=== PATIENT | male | born 1950 | race Hispanic/Latino ===

== ENCOUNTER 2017-06-30 19:11 | Emergency (ER) | payer BC ==
[2017-06-30 20:37] LABS: BASO # 0.1 K/uL (0.0-0.2); BASO % 1.1 % (0.0-2.0); EOS # 0.1 K/uL (0.0-0.7); EOS % 1.2 % (0.0-4.0); HEMOGLOBIN 14.5 g/dL (12.0-18.0); LYMPH # 1.9 K/uL (1.0-4.3); LYMPH % 15.3 % (20.0-40.0); MEAN CELL VOLUME 97.1 fL (80.0-94.0); MEAN CORPUSCULAR HEMOGLOBIN 33.4 pg (27.0-31.0); MEAN CORPUSCULAR HGB CONC 34.4 g/dL (33.0-37.0); MEAN PLATELET VOLUME 7.9 fL (7.2-11.7); MONO # 0.8 K/uL (0.0-0.8); MONO % 6.7 % (0.0-10.0); NEUT # 9.3 K/uL (1.8-7.0); NEUT % 75.7 % (50.0-75.0); RBC 4.33 Mil/uL (4.40-5.90); RED CELL DISTRIBUTION WIDTH 13.5 % (11.5-14.5); WHITE BLOOD COUNT 12.3 K/uL (4.8-10.8)
[2017-06-30 20:50] LABS: ALB/GLOB RATIO 1.2 (1.0-2.1); ALBUMIN 4.1 g/dL (3.5-5.0); ALT/SGPT 27 U/L (21-72); AST/SGOT 30 U/L (17-59); BLOOD UREA NITROGEN 16 mg/dL (9-20); CALCIUM 8.5 mg/dl (8.6-10.4); GFR AFRICAN-AMERICAN > 60; GFR NON-AFRICAN AMERICAN > 60
--- NOTE | 2017-06-30 22:02 | CP.PCM.CON ---
History of Present Illness - History of Present Illness History of Present Illness: Podiatry Consult Note - Dr. Diaz 67 year old male patient unremarkable PMHx presents to ED complaining of a painful blister on the bottom of his left foot. Friend present at bedside. Patient states he walks a lot daily, and often times walks barefoot - which he believes caused the blister on the bottom of his foot to develop. Patient first noticed the blister a couple days ago, but then noticed his foot becoming red and swollen which prompted him to present to [facility] ED. Currently, patient endorses moderate pain with palpation of the blister. Denies nausea, malaise, fever, lethargy, chills, diarrhea, SOB, headache, dizziness. PMHx: unremarkable PSH: appendectomy FH: HTN (brother, father) SH: Daily ETOH use (1 pint of vodka/day), 1PPD x30 years, denies illicit drug use All: NKDA Review of Systems - Review of Systems All systems: reviewed and no additional remarkable complaints except (as per HPI ) Past Patient History - Past Social History Smoking Status: Heavy Smoker > 10 Cigarettes Daily - CARDIAC Hx Hypertension: Yes - PSYCHIATRIC Hx Substance Use: No - SURGICAL HISTORY Hx Surgeries: Yes Hx Appendectomy: Yes Other/Comment: sinus surgery. RT ear - ANESTHESIA Hx Anesthesia: Yes Meds Home Medications: Home Medication List Medication Instructions Recorded Confirmed Type Amoxicillin/Clavulanate [Augmentin 1 tab PO BID #20 tab 06/30/17 Rx 875 MG-125 MG] Allergies/Adverse Reactions: Allergies Allergy/AdvReac Type Severity Reaction Status Date / Time No Known Allergies Allergy Unverified 01/19/14 03:40 Physical Exam - Constitutional Appears: Well, Non-toxic, No Acute Distress - Extremities Exam Additional comments: VASC: DP and PT pulses palpable 2/4 b/l. CFT <3 seconds to digits x10. Temperature gradient warm to warm b/l. Mild increase in warmth noted to erythematous areas in left foot. Nonpitting edema noted to left forefoot. NEURO: Gross sensation intact bilaterally. DERM: Bullae noted sub 2nd met head left foot measuring approximately 3 x 2 cm - filled with cloudy, yellow drainage when expressed revealing a mixed granular/ epithelialized base. Erythema noted to left foot extending from midshaft of metatarsals into digits. ORTHO: Pain on palpation left foot bullae. - Neurological Exam Neurological exam: Alert, Oriented x3 - Psychiatric Exam Psychiatric exam: Normal Affect, Normal Mood Results - Vital Signs Recent Vital Signs: Last Vital Signs Temp 97.8 F 06/30/17 19:26 Pulse 96 H 06/30/17 19:26 Resp 18 06/30/17 19:26 BP 182/94 H 06/30/17 19:26 Pulse Ox 100 06/30/17 19:26 - Labs Result Diagrams: 06/30/17 20:31 06/30/17 20:31 Labs: Laboratory Results - last 24 hr 06/30/17 06/30/17 20:31 20:31 WBC 12.3 H RBC 4.33 L Hgb 14.5 Hct 42.0 MCV 97.1 H MCH 33.4 H MCHC 34.4 RDW 13.5 Plt Count 232 MPV 7.9 Neut % (Auto) 75.7 H Lymph % (Auto) 15.3 L [place] % (Auto) 6.7 Eos % (Auto) 1.2 Baso % (Auto) 1.1 Neut # (Auto) 9.3 H Lymph # (Auto) 1.9 [place] # (Auto) 0.8 Eos # (Auto) 0.1 Baso # (Auto) 0.1 ESR 5 Sodium 141 Potassium 3.7 Chloride 104 Carbon Dioxide 21 L Anion Gap 19 BUN 16 Creatinine 0.8 Est GFR ( Amer) > 60 Est GFR (Non-Af Amer) > 60 Random Glucose 83 Calcium 8.5 L Total Bilirubin 1.5 H AST 30 ALT 27 Alkaline Phosphatase 67 C-Reactive Protein 5.20 Total Protein 7.4 Albumin 4.1 Globulin 3.3 Albumin/Globulin Ratio 1.2 Assessment & Plan - Assessment and Plan (Free Text) Assessment: 67M with infected bullae left foot + cellulitis Plan: Patient seen and evaluated Discussed with attending, Dr. Diaz Afebrile, WBC 12.3 L foot XR: soft tissue swelling plantar forefoot with possible foreign body Bedside I&D using #15 blade, approximately 1cc of purulence able to be expressed ; unable to find possible foreign body -Wound Cx obtained by ED Recommend Augmentin 1tab PO x10 days Advised patient to follow up with Dr. Diaz in the podiatry clinic on Tuesday, Stable for dc per podiatry Thank you for the consult, please reconsult podiatry as needed
[2017-06-30] MEDS ORDERED: Lidocaine 2% Inj (20ml) INFIL ONE (22:21)
[2017-06-30] MEDS ORDERED: Lidocaine 2% Inj (20ml) ONE (22:25)
--- NOTE | 2017-06-30 23:04 | C.PDOC ---
Time Seen by Provider: 06/30/17 19:47 Chief Complaint (Nursing): Abnormal Skin Integrity History Per: Patient Onset/Duration Of Symptoms: Days (4) Current Symptoms Are (Timing): Worse Location Of Injury: Left: Foot Quality Of Symptoms: Painful, Swollen Severity: Moderate Additional History Per: Prior Records Past Medical History Reviewed: Historical Data, Nursing Documentation, Vital Signs Vital Signs: Last Vital Signs Temp 97.8 F 06/30/17 19:26 Pulse 96 H 06/30/17 19:26 Resp 18 06/30/17 19:26 BP 182/94 H 06/30/17 19:26 Pulse Ox 100 06/30/17 23:06 - Medical History PMH: HTN Surgical History: Appendectomy Family History: States: Unknown Family Hx - Social History Hx Tobacco Use: No Hx Alcohol Use: Yes Hx Substance Use: No - Immunization History Hx Tetanus Toxoid Vaccination: No Hx Influenza Vaccination: No Hx Pneumococcal Vaccination: No Review Of Systems Except As Marked, All Systems Reviewed And Found Negative. Constitutional: Negative for: Fever Cardiovascular: Negative for: Chest Pain Respiratory: Negative for: Shortness of Breath Gastrointestinal: Negative for: Vomiting, Abdominal Pain Musculoskeletal: Positive for: Foot Pain (left). Negative for: Leg Pain Neurological: Negative for: Weakness, Numbness Physical Exam - Physical Exam Appears: Non-toxic, No Acute Distress Skin: Warm, Dry Head: Atraumatic, Normacephalic Eye(s): bilateral: Normal Inspection, PERRL, EOMI Neck: Normal ROM, Supple Cardiovascular: Rhythm Regular Respiratory: Normal Breath Sounds, No Accessory Muscle Use Extremity: Normal ROM, Tenderness (Left forefoot. ), No Calf Tenderness, Capillary Refill (wnl), Swelling (mild swelling to left forefoot with mild erythema), Other (hemorrhagic blister on plantar aspect of left forefoot.) Pulses: Left Dorsalis Pedis: Normal Neurological/Psych: Oriented x3, Normal Motor, Normal Sensation ED Course And Treatment - Laboratory Results Result Diagrams: 06/30/17 20:31 06/30/17 20:31 Interpretation Of Abnormal: Mild leukocytosis. Normal ESR/CRP. O2 Sat by Pulse Oximetry: 100 Pulse Ox Interpretation: Normal - Other Rad Left foot x-rays X-Ray: Interpreted by Me, Viewed By Me Interpretation: No acute fx. Progress Note: Pt was evaluated and treated in the ED by Podiatry resident. Podiatry states pt can be discharged home on Augmentin and f/up in Podiatry clinic. Reassessment Condition: Improved - Incision & Drainage Of Abscess Prep Used: Betadine Procedure: Incised W/Scalpel Blade#: (Aspirated with 19G needle), Drained Pus ( Blood with small amount of pus), Cultures Obtained And Sent To Lab Progress - Interventions Interventions:: Observation - Medications Administered Intravenous: NSAID - Data Reviewed Data Reviewed: Lab, Diagnostic imaging, Old records - Patient Status Patient status: Partially improved - Continuity of Care Discussed patient case with:: Patient, ED Nurse Discussed pt. case with edi consultant/specialty: Podiatry - Patient Plan Patient Plan: Discharge, F/U with PCP, Continue present meds Disposition Counseled Patient/Family Regarding: Studies Performed, Diagnosis, Need For Followup, Rx Given - Disposition Referrals: Jacinda Diaz DPM [Staff Provider] - Disposition: HOME/ ROUTINE Disposition Time: 23:07 Condition: FAIR Additional Instructions: Follow up with Dr. Diaz in the Podiatry clinic on Tuesday. Return to the ER if you develop fever, worsening of symptoms or if you have any other concerns. Prescriptions: Amoxicillin/Clavulanate [Augmentin 875 MG-125 MG] 1 tab PO BID #20 tab Forms: [facility] ([place]an), General Discharge Instructions - Clinical Impression Clinical Impression: Left foot infection, Blood blister
[2017-06-30] MEDS ORDERED: Amoxicillin-Clav 875-125 mg Tab PO STA (23:06)
[2017-06-30] MEDS ORDERED: Amoxicillin-Clav 875-125 mg Tab PO ONE (23:22)
[2017-06-30 23:44] VITALS: BP 164/84; PULSE 84; RESP 16; TEMP 98; O2SAT 98
--- NOTE | 2017-07-01 10:54 | RAD ---
PROCEDURE: Left Foot Radiographs. HISTORY: Pain/swelling COMPARISON: None. FINDINGS: BONES: Normal. No fracture. JOINTS: Normal. SOFT TISSUES: Normal. OTHER FINDINGS: None. IMPRESSION: Normal left foot radiographs.
== END 2017-06-30 23:44 | disposition home or self-care (01) ==
LOC: C.ER 19:11
DX: L03.116 Cellulitis of left lower limb (principal); R23.8 Other skin changes
CPT/HCPCS: 10060; 73630; 80053; 85025; 85651; 86140; 87070; 87181; 96374; 99283; J1885

== ENCOUNTER 2017-07-27 12:28 | Inpatient (IN) | payer BC, MEDICARE ==
[2017-07-27] MEDS ORDERED: DiphenhydrAMINE 50 mg/ml Inj ONE (12:49)
[2017-07-27 12:59] VITALS: RESP 20
[2017-07-27] MEDS ORDERED: DiphenhydrAMINE 50 mg/ml Inj IVP STA (13:04)
[2017-07-27] MEDS ORDERED: Sodium Chloride 0.9% 1,000 ML IV ONE (13:05)
[2017-07-27 13:17] LABS: BASO # 0.1 K/uL (0.0-0.2); BASO % 0.5 % (0.0-2.0); EOS # 0.1 K/uL (0.0-0.7); EOS % 0.5 % (0.0-4.0); HEMOGLOBIN 15.4 g/dL (12.0-18.0); LYMPH # 2.1 K/uL (1.0-4.3); LYMPH % 17.7 % (20.0-40.0); MEAN CELL VOLUME 97.5 fL (80.0-94.0); MEAN CORPUSCULAR HEMOGLOBIN 33.2 pg (27.0-31.0); MEAN CORPUSCULAR HGB CONC 34.1 g/dL (33.0-37.0); MEAN PLATELET VOLUME 8.5 fL (7.2-11.7); MONO # 1.3 K/uL (0.0-0.8); MONO % 10.5 % (0.0-10.0); NEUT # 8.5 K/uL (1.8-7.0); NEUT % 70.8 % (50.0-75.0); RBC 4.63 Mil/uL (4.40-5.90); RED CELL DISTRIBUTION WIDTH 13.4 % (11.5-14.5)
[2017-07-27 13:25] LABS: INR 0.9; PROTHROMBIN TIME 10.3 SECONDS (9.7-12.2)
--- NOTE | 2017-07-27 13:31 | RAD ---
PROCEDURE: CHEST RADIOGRAPH, 1 VIEW HISTORY: SOB COMPARISON: None available. FINDINGS: LUNGS: Biapical pleural-parenchymal scarring. No focal consolidation. PLEURA: No pneumothorax or pleural fluid seen. CARDIOVASCULAR: Atherosclerotic aortic calcifications. Cardiomediastinal silhouette within normal limits. OSSEOUS STRUCTURES: Degenerative changes. VISUALIZED UPPER ABDOMEN: Normal. OTHER FINDINGS: None. IMPRESSION: No active disease.
[2017-07-27 13:38] LABS: ALB/GLOB RATIO 1.3 (1.0-2.1); ALBUMIN 3.9 g/dL (3.5-5.0); ALT/SGPT 23 U/L (21-72); AST/SGOT 27 U/L (17-59); BLOOD UREA NITROGEN 29 mg/dL (9-20); CALCIUM 8.9 mg/dl (8.6-10.4); GFR AFRICAN-AMERICAN 52; GFR NON-AFRICAN AMERICAN 43
[2017-07-27 13:41] LABS: CK-MB 0.73 ng/mL (0.0-3.38)
--- NOTE | 2017-07-27 14:11 | C.PDOC ---
History Of Present Illness Patient presents to ED c/o swelling of his lips since waking up this morning. Patient started taking Lisinopril for HTN last night. He denies itching, tongue swelling, sensation of throat closing up, SOB, wheezing, palpitations, rash, chest pain. Time Seen by Provider: 07/27/17 12:46 Chief Complaint (Nursing): Allergic Reaction History Per: Patient History/Exam Limitations: no limitations Onset/Duration Of Symptoms: Hrs Current Symptoms Are (Timing): Still Present Severity: Severe Past Medical History Reviewed: Historical Data, Nursing Documentation, Vital Signs Vital Signs: Last Vital Signs Temp 97.9 F 07/27/17 12:45 Pulse 80 07/27/17 15:05 Resp 20 07/27/17 15:05 BP 134/75 07/27/17 15:05 Pulse Ox 98 07/27/17 15:05 - Medical History PMH: HTN Surgical History: Appendectomy Family History: States: No Known Family Hx - Social History Hx Tobacco Use: No Hx Alcohol Use: Yes Hx Substance Use: No - Immunization History Hx Tetanus Toxoid Vaccination: No Hx Influenza Vaccination: No Hx Pneumococcal Vaccination: No Review Of Systems Constitutional: Negative for: Fever, Chills ENT: Positive for: Other (lip swelling ) Cardiovascular: Negative for: Chest Pain, Palpitations Respiratory: Negative for: Cough, Shortness of Breath Gastrointestinal: Negative for: Nausea, Vomiting, Abdominal Pain, Diarrhea Genitourinary: Negative for: Dysuria, Hematuria Skin: Negative for: Rash Physical Exam - Physical Exam Appears: Well, Non-toxic, No Acute Distress, Other (speaking in full sentences) Skin: Normal Color, Warm, Dry, No Rash Head: Atraumatic, Normacephalic Eye(s): bilateral: Normal Inspection Nose: Normal Oral Mucosa: Moist Tongue: Normal Appearing, No Swelling Lips: Swelling, Other (moderate swelling of lips) Throat: Normal, No Erythema, No Exudate, No Drooling Cardiovascular: Rhythm Regular Respiratory: Normal Breath Sounds, No Accessory Muscle Use, No Rales, No Rhonchi , No Wheezing Neurological/Psych: Oriented x3 ED Course And Treatment - Laboratory Results Result Diagrams: 07/27/17 13:14 07/27/17 13:14 O2 Sat by Pulse Oximetry: 99 Progress Note: Blood work, CXR, EKG ordered and reviewed. 3:20PM- Patient evaluated by ICU Dr. Dutton, does not think patient needs ICU at this time. Will admit to telemetry. Disposition - Disposition Forms: [employer] ([place])
--- NOTE | 2017-07-27 15:40 | CP.PCM.HP ---
Past Patient History - Past Social History Smoking Status: Heavy Smoker > 10 Cigarettes Daily - CARDIAC Hx Hypertension: Yes - PSYCHIATRIC Hx Substance Use: No - SURGICAL HISTORY Hx Appendectomy: Yes - ANESTHESIA Hx Anesthesia: Yes Hx Anesthesia Reactions: No Meds Allergies/Adverse Reactions: Allergies Allergy/AdvReac Type Severity Reaction Status Date / Time No Known Allergies Allergy Verified 07/27/17 12:41 Physical Exam - Constitutional Appears: Well - Head Exam Head Exam: ATRAUMATIC, NORMAL INSPECTION, NORMOCEPHALIC - Eye Exam Eye Exam: EOMI, Normal appearance, PERRL Pupil Exam: NORMAL ACCOMODATION, PERRL - ENT Exam ENT Exam: Mucous Membranes Moist, Normal Exam - Neck Exam Neck exam: Positive for: Normal Inspection - Respiratory Exam Respiratory Exam: Decreased Breath Sounds - Cardiovascular Exam Cardiovascular Exam: REGULAR RHYTHM, +S1, +S2 - GI/Abdominal Exam GI & Abdominal Exam: Diminished Bowel Sounds, Soft - Rectal Exam Rectal Exam: Deferred Results - Vital Signs Recent Vital Signs: Last Vital Signs Temp 97.9 F 07/27/17 12:45 Pulse 80 07/27/17 15:05 Resp 20 07/27/17 15:05 BP 134/75 07/27/17 15:05 Pulse Ox 99 07/27/17 15:25 - Labs Result Diagrams: 07/27/17 13:14 07/27/17 13:14 Labs: Laboratory Results - last 24 hr 07/27/17 07/27/17 07/27/17 13:14 13:14 13:14 WBC 12.0 H RBC 4.63 Hgb 15.4 Hct 45.2 MCV 97.5 H MCH 33.2 H MCHC 34.1 RDW 13.4 Plt Count 222 MPV 8.5 Neut % (Auto) 70.8 Lymph % (Auto) 17.7 L [place] % (Auto) 10.5 H Eos % (Auto) 0.5 Baso % (Auto) 0.5 Neut # (Auto) 8.5 H Lymph # (Auto) 2.1 [place] # (Auto) 1.3 H Eos # (Auto) 0.1 Baso # (Auto) 0.1 PT 10.3 INR 0.9 APTT 30 Sodium 143 Potassium 4.4 Chloride 104 Carbon Dioxide 29 Anion Gap 15 BUN 29 H Creatinine 1.6 H Est GFR ( Amer) 52 Est GFR (Non-Af Amer) 43 Random Glucose 125 H Calcium 8.9 Total Bilirubin 3.1 H AST 27 ALT 23 Alkaline Phosphatase 59 Total Creatine Kinase 66 CK-MB (Mass) 0.73 Troponin I < 0.0120 Total Protein 6.8 Albumin 3.9 Globulin 3.0 Albumin/Globulin Ratio 1.3
--- NOTE | 2017-07-27 16:00 | CP.PCM.CON ---
History of Present Illness - History of Present Illness History of Present Illness: Critical Care consult note for Dr. Dutton This is a 67 year old male with PMHx HTN who presented to the hospital for swelling of the lips. Patient states that he took Lisinopril for the first time last night at approximately 23:00. Patient did not notice any immediate complication however woke up with facial swelling. He came to the emergency room for evaluation where he was given Benadryl and Solu-medrol. Per both patient and nursing staff there is some improvement in swelling since he came into the ED. At the time of encounter, the patient was conversing with us in full sentences without difficulty. Patient denies any shortness of breath at this time. Further ROS is negative aside from the continued swelling of the lower lip. PMHx: HTN PSHx: Mastoiditis procedure, right lateral sinus thrombectomy, appendectomy Allergies: Lisinopril (swelling) Social: Current smoker 10 cigarettes per day. Drinks vodka regularly. Denies drugs. Walks 10 miles per week. Review of Systems - Constitutional Constitutional: absent: Chills, Fever - EENT Eyes: absent: Change in Vision Ears: absent: Decreased Hearing Nose/Mouth/Throat: Tongue Swelling (improved), Other (lip swelling now improved) . absent: Nasal Congestion, Throat Swelling - Cardiovascular Cardiovascular: absent: Chest Pain - Respiratory Respiratory: absent: Dyspnea - Gastrointestinal Gastrointestinal: absent: Abdominal Pain - Genitourinary Genitourinary: absent: Dysuria - Musculoskeletal Musculoskeletal: absent: Back Pain - Integumentary Integumentary: Swelling (lower lip). absent: Rash - Neurological Neurological: absent: Weakness - Psychiatric Psychiatric: absent: Anxiety - Endocrine Endocrine: absent: Palpitations Past Patient History - Past Social History Smoking Status: Heavy Smoker > 10 Cigarettes Daily - CARDIAC Hx Hypertension: Yes - PSYCHIATRIC Hx Substance Use: No - SURGICAL HISTORY Hx Appendectomy: Yes - ANESTHESIA Hx Anesthesia: Yes Hx Anesthesia Reactions: No Meds Allergies/Adverse Reactions: Allergies Allergy/AdvReac Type Severity Reaction Status Date / Time No Known Allergies Allergy Verified 07/27/17 12:41 Physical Exam - Constitutional Appears: No Acute Distress - Head Exam Head Exam: ATRAUMATIC, NORMOCEPHALIC - Eye Exam Eye Exam: EOMI, PERRL - ENT Exam Additional comments: Residual swelling of the lower lip. - Neck Exam Neck exam: Positive for: Normal Inspection - Respiratory Exam Respiratory Exam: Clear to Auscultation Bilateral. absent: Rales, Rhonchi, Wheezes - Cardiovascular Exam Cardiovascular Exam: REGULAR RHYTHM, +S1, +S2 - GI/Abdominal Exam GI & Abdominal Exam: Normal Bowel Sounds, Soft. absent: Tenderness - Extremities Exam Extremities exam: Negative for: pedal edema - Neurological Exam Neurological exam: Alert, Oriented x3 - Psychiatric Exam Psychiatric exam: Normal Affect, Normal Mood - Skin Skin Exam: Dry, Warm Results - Vital Signs Recent Vital Signs: Last Vital Signs Temp 97.9 F 07/27/17 12:45 Pulse 80 07/27/17 15:05 Resp 20 07/27/17 15:05 BP 134/75 07/27/17 15:05 Pulse Ox 99 07/27/17 15:25 - Labs Result Diagrams: 07/27/17 13:14 07/27/17 13:14 Labs: Laboratory Results - last 24 hr 07/27/17 07/27/17 07/27/17 13:14 13:14 13:14 WBC 12.0 H RBC 4.63 Hgb 15.4 Hct 45.2 MCV 97.5 H MCH 33.2 H MCHC 34.1 RDW 13.4 Plt Count 222 MPV 8.5 Neut % (Auto) 70.8 Lymph % (Auto) 17.7 L [place] % (Auto) 10.5 H Eos % (Auto) 0.5 Baso % (Auto) 0.5 Neut # (Auto) 8.5 H Lymph # (Auto) 2.1 [place] # (Auto) 1.3 H Eos # (Auto) 0.1 Baso # (Auto) 0.1 PT 10.3 INR 0.9 APTT 30 Sodium 143 Potassium 4.4 Chloride 104 Carbon Dioxide 29 Anion Gap 15 BUN 29 H Creatinine 1.6 H Est GFR ( Amer) 52 Est GFR (Non-Af Amer) 43 Random Glucose 125 H Calcium 8.9 Total Bilirubin 3.1 H AST 27 ALT 23 Alkaline Phosphatase 59 Total Creatine Kinase 66 CK-MB (Mass) 0.73 Troponin I < 0.0120 Total Protein 6.8 Albumin 3.9 Globulin 3.0 Albumin/Globulin Ratio 1.3 Assessment & Plan - Assessment and Plan (Free Text) Assessment: This is a 67 year old male with PMHx HTN who presented for adverse reaction from Lisinopril. Patient is much improved after Benadryl and Solu-Medrol. Patient is conversing with us in full sentences and is not short of breath. He is stable at this time to be managed on the floors. Seen and discussed with Dr. Dutton
[2017-07-27] MEDS: MethylPREDNISolone 40 mg Vial IVP SCH (21:28)
[2017-07-27] MEDS: DiphenhydrAMINE 50 mg/ml Inj IVP SCH (21:29)
[2017-07-28] MEDS: MethylPREDNISolone 40 mg Vial IVP SCH ×2 (05:11→14:12)
[2017-07-28] MEDS: DiphenhydrAMINE 50 mg/ml Inj IVP SCH ×2 (05:13→14:12)
[2017-07-28 08:28] LABS: BASO % 0.3 % (0.0-2.0); HEMOGLOBIN 14.1 g/dL (12.0-18.0); LYMPH # 0.7 K/uL (1.0-4.3); LYMPH % 6.3 % (20.0-40.0); MEAN CELL VOLUME 96.5 fL (80.0-94.0); MEAN CORPUSCULAR HEMOGLOBIN 33.3 pg (27.0-31.0); MEAN CORPUSCULAR HGB CONC 34.5 g/dL (33.0-37.0); MEAN PLATELET VOLUME 8.6 fL (7.2-11.7); MONO # 0.5 K/uL (0.0-0.8); MONO % 3.8 % (0.0-10.0); NEUT # 10.6 K/uL (1.8-7.0); NEUT % 89.6 % (50.0-75.0); PLATELET COUNT 214 K/uL (130-400); RBC 4.24 Mil/uL (4.40-5.90); WHITE BLOOD COUNT 11.8 K/uL (4.8-10.8)
[2017-07-28 08:45] LABS: ALB/GLOB RATIO 1.2 (1.0-2.1); ALBUMIN 3.3 g/dL (3.5-5.0); ALT/SGPT 18 U/L (21-72); AST/SGOT 21 U/L (17-59); BLOOD UREA NITROGEN 32 mg/dL (9-20); CALCIUM 8.6 mg/dl (8.6-10.4); GFR AFRICAN-AMERICAN > 60; GFR NON-AFRICAN AMERICAN > 60
[2017-07-28 08:51] LABS: LYMPHOCYTE 6 % (20-40); MONOCYTE 3 % (0-10); NEUTROPHIL 91 % (50-75); PLATELET ESTIMATE NORMAL (NORMAL); TOTAL CELLS COUNTED 100
--- NOTE | 2017-07-28 11:56 | CARD ---
APPROVED REPORT EKG Measurement Heart [id number] <Conclusion> Normal sinus rhythm Possible Left atrial enlargement Left ventricular hypertrophy Cannot rule out Septal infarct, age undetermined Abnormal ECG
--- NOTE | 2017-07-28 13:13 | CP.PCM.PN ---
<RandolphLisa - Last Filed: 07/28/17 15:19> Subjective - Date & Time of Evaluation Date of Evaluation: 07/28/17 Time of Evaluation: 07:20 - Subjective Subjective: PGY2 medicine progress note for Dr. Myron Marquez: Patient was seen and examined at bedside this morning. He reports swelling in his face and lips which has decreased since admission. He denies shortness of breath or any difficulties breathing. Objective - Vital Signs/Intake and Output Vital Signs (last 24 hours): Temp Pulse Resp BP Pulse Ox 98.5 F 70 20 138/74 97 07/28/17 07:30 07/28/17 07:52 07/28/17 07:30 07/28/17 07:30 07/28/17 07:30 - Medications Medications: Current Medications Diphenhydramine HCl (Benadryl) 25 mg IVP Q8 [facility] Last Admin: 07/28/17 05:13 Dose: 25 mg Heparin Sodium (Porcine) (Heparin) 5,000 units SC Q12 [facility] Last Admin: 07/28/17 10:03 Dose: 5,000 units Methylprednisolone (Solu-Medrol) 40 mg IVP Q8 [facility] Last Admin: 07/28/17 05:11 Dose: 40 mg - Labs Labs: 07/28/17 08:17 07/28/17 08:17 PT 10.3 SECONDS (9.7-12.2) 07/27/17 13:14 INR 0.9 07/27/17 13:14 APTT 30 SECONDS (21-34) 07/27/17 13:14 - Constitutional Appears: Non-toxic, No Acute Distress - Head Exam Head Exam: ATRAUMATIC, NORMAL INSPECTION - Eye Exam Eye Exam: EOMI Pupil Exam: NORMAL ACCOMODATION - ENT Exam ENT Exam: Mucous Membranes Moist Additional comments: swelling to face, lips, and tongue - Respiratory Exam Respiratory Exam: Clear to Ausculation Bilateral, NORMAL BREATHING PATTERN. absent: Respiratory Distress - Cardiovascular Exam Cardiovascular Exam: REGULAR RHYTHM, +S1, +S2 - GI/Abdominal Exam GI & Abdominal Exam: Soft, Normal Bowel Sounds. absent: Distended, Firm, Guarding, Tenderness - Extremities Exam Extremities Exam: Normal Inspection. absent: Calf Tenderness, Pedal Edema - Back Exam Back Exam: NORMAL INSPECTION. absent: CVA tenderness (L), CVA tenderness (R), paraspinal tenderness - Neurological Exam Neurological Exam: Alert, Awake, CN II-XII Intact, Normal Gait, Oriented x3 Neuro motor strength exam: Left Upper Extremity: 5, Right Upper Extremity: 5, Left Lower Extremity: 5, Right Lower Extremity: 5 - Psychiatric Exam Psychiatric exam: Normal Affect, Normal Mood - Skin Skin Exam: Normal Color Assessment and Plan - Assessment and Plan (Free Text) Assessment: Angioedema Improving good saturation, no SOB, able to protect airway secondary to Lisinopril use Benadryl 25mg IVP Q8 laurie Solumedrol 40mg IVP Q8 HTN Will consider starting amlodipine 5mg PO daily Prophylactic Measures Heparin 5000 U SC Q12 Patient is stable for discharge home. He is [facility] one week of discharge. Patient is to take prednisone taper as instructed. He is also not to take Lisinopril due to adverse reaction. Instead he is to start Amlodipine 5mg one by mouth daily for blood pressure control. He is to check his BP and home and bring these numbers to his follow up appointment. Patient is to return to the ER if he has trouble swallowing, eating /drinking, increased swelling, or shortness of breath. All instructions explained to the patient and he agrees. All management per Dr. Myron Marquez. <Karly Marquez S - Last Filed: 07/29/17 11:53> Objective - Vital Signs/Intake and Output Vital Signs (last 24 hours): Temp Pulse Resp BP Pulse Ox 98.6 F 88 20 151/78 H 99 07/28/17 15:00 07/28/17 15:42 07/28/17 15:00 07/28/17 15:00 07/28/17 15:00 - Labs Labs: 07/28/17 08:17 07/28/17 08:17 PT 10.3 SECONDS (9.7-12.2) 07/27/17 13:14 INR 0.9 07/27/17 13:14 APTT 30 SECONDS (21-34) 07/27/17 13:14 Attending/Attestation - Attestation I have personally seen and examined this patient.: Yes I have fully participated in the care of the patient.: Yes I have reviewed all pertinent clinical information, including history, physical exam and plan: Yes Notes (Text): case seen and d.w staff and resident, concurred with finding and management..
[2017-07-28 15:44] VITALS: PULSE 88
[2017-07-28 15:54] VITALS: BP 151/78; TEMP 98.6; O2SAT 99
== END 2017-07-28 16:10 | disposition home or self-care (01) | DRG 916 ==
LOC: C.ER 12:28 → C.9E 14:43 → C.6T 15:52
PROVIDERS: ADMIT Internal Medicine Nephrology; ATTEND Internal Medicine Nephrology
DX: T78.3XXA Angioneurotic edema, initial encounter (principal); T46.4X5A Adverse effect of angiotensin-converting-enzyme inhibitors, initial encounter; I10 Essential (primary) hypertension; F17.210 Nicotine dependence, cigarettes, uncomplicated; Z90.49 Acquired absence of other specified parts of digestive tract

== ENCOUNTER 2017-12-16 18:14 | Emergency (ER) | payer BC, MEDICARE ==
[2017-12-16 18:26] VITALS: TEMP 98.4; O2SAT 98
[2017-12-16] MEDS ORDERED: Sodium Chloride 0.9% 1,000 ML IV ONE (18:37)
[2017-12-16] MEDS ORDERED: Lidocaine 2% Inj (20ml) INFIL ONE (18:39)
[2017-12-16] MEDS ORDERED: Piperacillin/Tazobact 3.375 GM in Sodium Chloride 100 ML IVPB STA (18:39)
--- NOTE | 2017-12-16 18:52 | C.PDOC ---
History Of Present Illness 67-year-old male, PMHx includes Hypertension (non-compliant with medication), presents to the emergency department with complaints of a painful mass to the right buttock which has gradually developed for the past week. Patient states he noticed some oozing from wound, prompting visit. He denies any trauma, fever , denies headache, dizziness, visual changes, focal deficits, neck pain, CP, SOB, dyspnea, palpitation, abdominal pain, N/V, back pain, denies change in bowel habits, or any other associated symptoms. Ambulate to Ed for evaluation, not in any apparent distress. Time Seen by Provider: 12/16/17 18:20 Chief Complaint (Nursing): Abnormal Skin Integrity History Per: Patient History/Exam Limitations: no limitations Onset/Duration Of Symptoms: Days Current Symptoms Are (Timing): Still Present Past Medical History Reviewed: Historical Data, Nursing Documentation, Vital Signs Vital Signs: Last Vital Signs Temp 98.4 F 12/16/17 18:23 Pulse 71 12/16/17 21:11 Resp 20 12/16/17 21:11 BP 198/90 H 12/16/17 21:30 Pulse Ox 98 12/16/17 21:23 - Medical History PMH: HTN (DOESN'T TAKE ANY MEDICATIONS) Denies: Chronic Kidney Disease Surgical History: Appendectomy Family History: States: No Known Family Hx - Social History Hx Tobacco Use: No Hx Alcohol Use: Yes Hx Substance Use: No - Immunization History Hx Tetanus Toxoid Vaccination: No Hx Influenza Vaccination: No Hx Pneumococcal Vaccination: No Review Of Systems Except As Marked, All Systems Reviewed And Found Negative. Constitutional: Negative for: Fever, Chills Eyes: Negative for: Vision Change ENT: Negative for: Ear Discharge, Nose Discharge Cardiovascular: Negative for: Chest Pain, Palpitations, Edema, Light Headedness Respiratory: Negative for: Cough, Shortness of Breath, Wheezing Gastrointestinal: Negative for: Nausea, Vomiting, Abdominal Pain, Diarrhea Genitourinary: Negative for: Dysuria, Incontinence Musculoskeletal: Negative for: Neck Pain, Back Pain Skin: Positive for: Lesions Neurological: Negative for: Weakness, Numbness, Headache, Dizziness Physical Exam - Physical Exam Appears: Well, Non-toxic, No Acute Distress Skin: Warm, Dry, No Rash, Other (Rt gluteus tender mass 3cm in diameter with surrounding erythema +fluctuance (-) proximal streaking) Head: Normacephalic Eye(s): bilateral: PERRL Nose: No Flaring Oral Mucosa: Moist Throat: No Drooling Neck: Trachea Midline, Supple Cardiovascular: Rhythm Regular, No Murmur, No JVD Respiratory: No Accessory Muscle Use, No Stridor, No Wheezing Gastrointestinal/Abdominal: Soft, No Tenderness, No Distention, No Guarding Back: No CVA Tenderness Extremity: Normal ROM (RLE), No Tenderness, No Pedal Edema, No Deformity, No Swelling Neurological/Psych: Oriented x3, Normal Speech, Normal Motor, Normal Sensation, Normal Reflexes ED Course And Treatment - Laboratory Results Result Diagrams: 12/16/17 18:51 12/16/17 18:51 Lab Interpretation: Normal O2 Sat by Pulse Oximetry: 98 Pulse Ox Interpretation: Normal (RA) Progress Note: On re-eval, pt is afebrile, hemodynamicaly stable. Non-toxic. ENT: no acute findings. Neck: Supple, (-) meningeal sign, (-) JVD, (-) carotid bruits B/L. Lungs: CTA B/L, BS equal B/L. CVS: (+)S1S2, reg., (-) murmur. ABd : benign, (-) guaridng, (-) rebound. SKin: Right gluteal abscess s/p I&D. Wound cx-pending. Blood work review, no acute leukocytosis or left shuft, pt is afbeirle. HTN noted on triage,p t is non-complaint with medictaion, reports " I never took any medictaion for BP". Previous ED records review, when pt was seen on 07/27/17 and admitted to [facility] with Dx: angioedema sec to Lisinopril. Pt was placed on Amlodipine 5 mg qd. At present time, pt denies headache, dizziness, visual cahnges, focal deficits, CP, SOB, dyspnea, palpitation, abd. pain, back pain, or any other complaints relaited to HTN. Pt advised to cont HTN meds as prescribed and F/u with PMD in 1-2 days for re- evaluated BP re-checked. Pt understand and agrees with discharge. Pt stable for discharge now. - Incision & Drainage Of Abscess Anesthesia: Lidocaine 2% Prep Used: Betadine Procedure: Incised W/Scalpel Blade#: (11), Drained Pus, Irrigated Cavity W/ Saline, Probed To Break Up Loculations, Packed W/Gauze, Cultures Obtained And Sent To Lab Disposition Counseled Patient/Family Regarding: Studies Performed, Diagnosis, Need For Followup, Rx Given - Disposition Referrals: [facility] [Outside] Disposition: HOME/ ROUTINE Disposition Time: 20:52 Condition: STABLE Additional Instructions: Take medication as prescribed Continue Blood Pressure medication as prescribed Return to ED in 2 days for wound check. Return to ED at any time if any worsening or new changes. Prescriptions: amLODIPine [Norvasc] 5 mg PO BID #20 tab Doxycycline Hyclate [Doryx] 100 mg PO BID #14 cap traMADol [Ultram] 50 mg PO TID #7 tab Instructions: High Blood Pressure in Adults, Abscess Incision and Drainage Forms: [employer] (Italian) - Clinical Impression Clinical Impression: Cellulitis, Hypertension, Abscess - Scribe Statement The provider has reviewed the documentation as recorded by the Scribe (Mayco Hernandez) All medical record entries made by the Scribe were at my direction and personally dictated by me. I have reviewed the chart and agree that the record accurately reflects my personal performance of the history, physical exam, medical decision making, and the department course for this patient. I have also personally directed, reviewed, and agree with the discharge instructions and disposition.
[2017-12-16 18:54] LABS: BASO # 0.1 K/uL (0.0-0.2); BASO % 1.2 % (0.0-2.0); EOS # 0.2 K/uL (0.0-0.7); EOS % 2.4 % (0.0-4.0); LYMPH # 2.2 K/uL (1.0-4.3); LYMPH % 23.8 % (20.0-40.0); MEAN CELL VOLUME 95.4 fL (80.0-94.0); MEAN CORPUSCULAR HEMOGLOBIN 33.2 pg (27.0-31.0); MEAN CORPUSCULAR HGB CONC 34.8 g/dL (33.0-37.0); MEAN PLATELET VOLUME 7.7 fL (7.2-11.7); MONO # 0.7 K/uL (0.0-0.8); MONO % 7.9 % (0.0-10.0); NEUT % 64.7 % (50.0-75.0); NRBC % 0.1 % (0.0-2.0); RBC 4.23 Mil/uL (4.40-5.90); RED CELL DISTRIBUTION WIDTH 13.1 % (11.5-14.5); WHITE BLOOD COUNT 9.3 K/uL (4.8-10.8)
[2017-12-16] MEDS ORDERED: Sodium Chloride 0.9% 1,000 ML ONE (18:56)
[2017-12-16] MEDS ORDERED: Piperacillin/Tazobact 3.375 gm 100 ML IVPB ONE (18:56)
[2017-12-16] MEDS ORDERED: Vancomycin 1 GM 1 GM/250 ML BAG IVPB ONE (18:56)
[2017-12-16 19:08] LABS: BLOOD UREA NITROGEN 19 mg/dL (9-20); CALCIUM 8.9 mg/dl (8.6-10.4); GFR NON-AFRICAN AMERICAN > 60
[2017-12-16 19:56] VITALS: RESP 20
[2017-12-16 21:11] VITALS: PULSE 71
[2017-12-16 21:30] VITALS: BP 198/90
== END 2017-12-16 21:30 | disposition home or self-care (01) ==
LOC: C.ER 18:14
DX: L03.317 Cellulitis of buttock (principal); L02.31 Cutaneous abscess of buttock; I10 Essential (primary) hypertension
CPT/HCPCS: 10060; 80048; 85025; 87040; 87070; 87181; 96365; 96367; 99284; J2543; J7030; J7050

== ENCOUNTER 2017-12-18 07:48 | Emergency (ER) | payer BC ==
[2017-12-18 08:02] VITALS: BP 172/103; PULSE 85; RESP 18; TEMP 97.9; O2SAT 99
--- NOTE | 2017-12-18 08:38 | C.PDOC ---
History Of Present Illness 67 year old male presents to the emergency department for a wound check. Patient notes of an abscess in the right gluteal region. I&D 2 days ago. Otherwise patient has no complaints and denies any fever, chills, or other symptoms. Time Seen by Provider: 12/18/17 08:23 Chief Complaint (Nursing): Wound Check History Per: Patient History/Exam Limitations: no limitations Onset/Duration Of Symptoms: Days Ago Current Symptoms Are (Timing): Still Present Past Medical History Reviewed: Historical Data, Nursing Documentation, Vital Signs Vital Signs: Last Vital Signs Temp 97.9 F 12/18/17 08:00 Pulse 85 12/18/17 08:00 Resp 18 12/18/17 08:00 BP 172/103 H 12/18/17 08:00 Pulse Ox 99 12/18/17 09:08 - Medical History PMH: HTN (DOESN'T TAKE ANY MEDICATIONS) Denies: Chronic Kidney Disease Surgical History: Appendectomy Family History: States: No Known Family Hx - Social History Hx Tobacco Use: No Hx Alcohol Use: Yes Hx Substance Use: No - Immunization History Hx Tetanus Toxoid Vaccination: No Hx Influenza Vaccination: No Hx Pneumococcal Vaccination: No Review Of Systems Except As Marked, All Systems Reviewed And Found Negative. Skin: Positive for: Other (Wound Check) Physical Exam - Physical Exam Appears: Non-toxic, No Acute Distress Skin: Normal Color, Warm, Dry, Other (Packing in R gluteal area) Head: Atraumatic, Normacephalic Eye(s): bilateral: Normal Inspection, PERRL, EOMI Nose: Normal Oral Mucosa: Moist Chest: Symmetrical Cardiovascular: Rhythm Regular, No Murmur Respiratory: Normal Breath Sounds, No Rales, No Rhonchi, No Wheezing Gastrointestinal/Abdominal: Normal Exam, Soft, No Tenderness Neurological/Psych: Oriented x3, Normal Speech ED Course And Treatment O2 Sat by Pulse Oximetry: 99 (RA) Pulse Ox Interpretation: Normal Medical Decision Making Medical Decision Making: Impression: Wound Check Packing was removed and changed. On re-assessment, patient is resting comfortably, and is in no acute distress. Disposition - Disposition Disposition: HOME/ ROUTINE Disposition Time: 08:36 Condition: STABLE Additional Instructions: follow up with your doctor in 2 days packing removal in 2-3 days continue antibiotic return to ER if symptoms worsens or progress Instructions: Abscess Drainage, Percutaneous (DC) Forms: [employer] (Pashto), General Discharge Instructions - Clinical Impression Clinical Impression: Wound check, abscess - Scribe Statement The provider has reviewed the documentation as recorded by the Radhaibdonaldo Noguera Provider Attestation: All medical record entries made by the Scribe were at my direction and personally dictated by me. I have reviewed the chart and agree that the record accurately reflects my personal performance of the history, physical exam, medical decision making, and the department course for this patient. I have also personally directed, reviewed, and agree with the discharge instructions and disposition. Procedure - Procedure and Findings -: Packing was removed and changed.
== END 2017-12-18 09:02 | disposition home or self-care (01) ==
LOC: C.ER 07:48
DX: Z48.00 Encounter for change or removal of nonsurgical wound dressing (principal); L02.31 Cutaneous abscess of buttock